=== PATIENT | male | born 1995 | race Caucasian/White ===

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

== ENCOUNTER → 2017-11-27 | Outpatient (CLI) | payer BC ==
[~2017-11-27] MED LIST: IBUP-103 PO
--- NOTE | 2017-11-27 14:35 | DIAGNOSTIC IMAGING REPORT ---
THORACIC SPINE 3 VIEWS ROUTINE CLINICAL HISTORY: Upper back and lower neck pain following skiing accident. COMPARISON STUDY: No previous studies for comparison. FINDINGS: Alignment of the thoracic spine is anatomic. Vertebral body heights are maintained. No fracture is identified. IMPRESSION: No acute thoracic spine fracture or subluxation identified. Electronically signed by: Sohan Washington M.D. 11/27/2017 2:34 PM Dictated Date/Time: 11/27/2017 2:33 PM
--- NOTE | 2017-11-27 14:40 | DIAGNOSTIC IMAGING REPORT ---
C-SPINE ROUTINE 4 OR 5 VIEWS CLINICAL HISTORY: Lower neck pain following skiing accident. COMPARISON STUDY: No previous studies for comparison. FINDINGS: Alignment of the cervical spine is anatomic. Vertebral body heights are maintained. There is no acute cervical spine fracture. Facet joints are intact. IMPRESSION: No cervical spine fracture or subluxation identified. Electronically signed by: Sohan Washington M.D. 11/27/2017 2:38 PM Dictated Date/Time: 11/27/2017 2:35 PM
== END | disposition home or self-care (01) ==
LOC: C.RAD 13:34
DX: M48.30 Traumatic spondylopathy, site unspecified (principal); M54.2 Cervicalgia; M54.6 Pain in thoracic spine